=== PATIENT | male | born 1960 | race Caucasian/White ===

== ENCOUNTER → 2017-01-24 | Outpatient (CLI) | payer BC | END | disposition home or self-care (01) | LOC: PCVCIMAG 08:07 | PROVIDERS: ATTEND Internal Medicine | DX: I25.10 Atherosclerotic heart disease of native coronary artery without angina pectoris (principal); R07.89 Other chest pain | CPT/HCPCS: 78452; A9500; 93017 ==

== ENCOUNTER → 2017-02-04 | Outpatient (CLI) | payer BC | END | disposition home or self-care (01) | LOC: PCVCIMAG 12:50 | PROVIDERS: ATTEND Internal Medicine | DX: I71.2 Thoracic aortic aneurysm, without rupture (principal); I10 Essential (primary) hypertension | CPT/HCPCS: 93306 ==

== ENCOUNTER → 2017-09-08 | Outpatient (CLI) | payer BC ==
--- NOTE | 2017-09-08 11:23 | PCVCIMAG ---
APPROVED REPORT Study performed: 09/08/2017 09:32:13 EXAM: Comprehensive 2D, Doppler, and color-flow Echocardiogram Patient Location: Echo lab Status: routine BSA: 1.88 HR: 59 bpm Rhythm: NSR Other Information Study Quality: Good Indications Hypertension. Hyperlipidemia. Elevated Calcium Score. Dilated Ascending Root. 2D Dimensions LVEF(%): 57.77 (>50%) IVSd: 9.83 (7-11mm)LVOT Diam: 21.01 (18-24mm) LVDd: 41.73 mm PWd: 9.99 (7-11mm)Ascending Ao: 42.50 (22-36mm) LVDs: 29.17 (25-40mm) Left Atrium: 36.93 (27-40mm) Aortic Root: 35.27 mm Wellington's LVEF: 57.77 % Volumes Left Atrial Volume (Systole) Single Plane 4CH: 31.66 mLSingle Plane 2CH: 29.32 mL LA ESV Index: 17.00 mL/m2 Aortic Valve AoV Peak Esteban.: 1.36 m/s AO Peak Gr.: 7.42 mmHg Mitral Valve E/A Ratio: 0.8 MV Decel. Time: 276.92 ms MV E Max Esteban.: 0.56 m/s MV A Esteban.: 0.73 m/s Pulmonary Valve PV Peak Gr.: 1.80 mmHg Pulmonary Vein P Vein S: 0.51 m/sP Vein A: 0.24 m/s P Vein D: 0.49 m/sP Vein A Dur.: 58.8 msec P Vein S/D Ratio: 1.04 Left Ventricle The left ventricle is normal size. There is normal LV segmental wall motion. There is normal left ventricular wall thickness. Left ventricular systolic function is normal. The left ventricular ejection fraction is within the normal range. LVEF is 65%. The left ventricular diastolic function is normal. Right Ventricle The right ventricle is normal size. Right ventricle is mildly hypokinetic. Right ventricle is moderately hypokinetic. Right ventricle is severely hypokinetic. Right ventricular systolic function is mildly reduced. Right ventricular systolic function is moderately reduced. Atria The left atrium size is normal. The right atrium size is normal. Aortic Valve The aortic valve is normal in structure. No aortic regurgitation is present. There is no aortic valvular stenosis. Mitral Valve The mitral valve is normal in structure. There is no mitral valve regurgitation noted. No evidence of mitral valve stenosis. Tricuspid Valve The tricuspid valve is normal in structure. There is no tricuspid valve regurgitation noted. Pulmonic Valve The pulmonary valve is normal in structure. Trace pulmonic regurgitation. Great Vessels Ascending measures 4.2-4.4cm. IVC is normal in size and collapses with >50% inspiration Pericardium There is no pericardial effusion. <Conclusion> The left ventricle is normal size. LVEF is 65%. The aortic valve is normal in structure. The mitral valve is normal in structure. The pulmonary valve is normal in structure. Trace pulmonic regurgitation. There is no pericardial effusion. Ascending measures 4.2-4.4cm.
== END | disposition home or self-care (01) ==
LOC: PCVCIMAG 09:31
PROVIDERS: ATTEND Internal Medicine
DX: I25.10 Atherosclerotic heart disease of native coronary artery without angina pectoris (principal); I10 Essential (primary) hypertension; R06.00 Dyspnea, unspecified; E78.5 Hyperlipidemia, unspecified; E83.59 Other disorders of calcium metabolism
CPT/HCPCS: 80061; 93306

== ENCOUNTER → 2019-09-08 | Outpatient (CLI) | payer BC ==
--- NOTE | 2019-09-08 13:08 | PCVCIMAG ---
EXAM: AORTOILIAC DUPLEX INDICATION: Peripheral arterial disease. Aortic aneurysm. FINDINGS: AORTA: Suprarenal aorta measures maximum diameter of 2.8 cm. There is not a fusiform infrarenal aortic aneurysm. The infrarenal aorta measures maximum diameter of 2.2 cm. No aortic stenosis. RIGHT COMMON ILIAC ARTERY: Maximum diameter is 1.2 cm. No significant stenosis. RIGHT EXTERNAL ILIAC ARTERY: No significant stenosis. LEFT COMMON ILIAC ARTERY: Maximum diameter is 1.4 cm. No significant stenosis. LEFT EXTERNAL ILIAC ARTERY: No significant stenosis. IMPRESSION: No abdominal aortic aneurysm. No aortoiliac stenosis seen. LOC:[id number]
== END | disposition home or self-care (01) ==
LOC: PCVCIMAG 08:32
PROVIDERS: ATTEND Internal Medicine
DX: I73.9 Peripheral vascular disease, unspecified (principal); I71.9 Aortic aneurysm of unspecified site, without rupture
CPT/HCPCS: 93978